=== PATIENT | female | born 1960 | race Caucasian/White ===

== ENCOUNTER 2022-07-10 10:24 | Inpatient (IN) | payer BC ==
[~2022-07-10] VITALS: Ht 165.1 cm; Wt 55.8 kg
[2022-07-10 11:33] LABS: BASOPHILS % (AUTO) 0.4 % (0-1); EOSINOPHILS % (AUTO) 0.4 % (0-6); HEMATOCRIT 40.2 % (35.0-45.0); HEMOGLOBIN 13.3 g/dl (12.0-16.0); LYMPHOCYTES # (AUTO) 1.7 X10'3 (1.1-4.8); LYMPHOCYTES % (AUTO) 25.2 % (21-51); MEAN CORPUSCULAR HEMOGLOBIN 29.9 PG (27.0-31.0); MEAN CORPUSCULAR HGB CONC 33.1 g/dL (33.0-36.5); MEAN CORPUSCULAR VOLUME 90.4 FL (78-98); MEAN PLATELET VOLUME 7.5 FL (7.4-10.4); MONOCYTES # (AUTO) 0.3 X10'3 (0-0.9); MONOCYTES % (AUTO) 4.9 % (2-12); NEUTROPHILS # (AUTO) 4.7 X10'3 (1.8-7.7); NEUTROPHILS % (AUTO) 69.1 % (42-75); PLATELET COUNT 232 X10'3 (140-440); RED BLOOD COUNT 4.44 X10'6 (4.20-5.60); RED CELL DISTRIBUTION WIDTH 13.5 % (11.5-14.5); WHITE BLOOD COUNT 6.8 X10'3 (4.5-11.0)
[2022-07-10 11:52] LABS: ALANINE AMINOTRANSFERASE 18 U/L (12-78); ALBUMIN/GLOBULIN RATIO 1.1 (1.1-1.5); ALKALINE PHOSPHATASE 46 IU/L (46-116); ANION GAP 10 (8-16); ASPARTATE AMINO TRANSFERASE 16 U/L (10-37); BILIRUBIN,TOTAL 1.1 MG/DL (0.1-1.0); BLOOD UREA NITROGEN 13 MG/DL (7-18); BUN/CREATININE RATIO 15.5 (6.6-38.0); CALCIUM 9.5 MG/DL (8.5-10.1); CHLORIDE 105 MMOL/L (99-107); CREATININE 0.84 MG/DL (0.40-0.90); ETHANOL < 0.010 GM/DL (0.0-0.010); GLUCOSE 105 MG/DL (70-104); POTASSIUM 4.1 MMOL/L (3.5-5.1); SODIUM 139 MMOL/L (135-145); TOTAL CARBON DIOXIDE 23.9 MMOL/L (24-32); TOTAL PROTEIN 7.7 G/DL (6.4-8.2); eGFR 68 ML/MIN
[2022-07-10 13:58] LABS: CLARITY,URINE CLEAR (Clear); COLOR,URINE STRAW (Yellow); GLUCOSE, URINE NEGATIVE (Neg); KETONES,URINE NEGATIVE (Neg); LEUKOCYTE ESTERASE ,URINE NEGATIVE (Neg); NITRITES, URINE POSITIVE (Neg); OCCULT BLOOD,URINE NEGATIVE (Neg); PROTEIN,URINE NEGATIVE (Neg); UROBILINOGEN,URINE 0.2 E.U/dL (0.2-1.0)
[2022-07-10 13:59] LABS: UA COLLECTION TYPE CLN CATCH MIDSTREAM
[2022-07-10 14:06] LABS: BACTERIA,URINE 4+ /HPF (Neg); MUCUS STRANDS NONE SEEN /LPF (Neg); RBC,URINE NONE SEEN /HPF (0-2); SQUAMOUS EPITHELIAL CELL,UR FEW /LPF (FEW); WBC,URINE NONE SEEN /HPF (0-4)
[2022-07-10 14:15] LABS: URINE AMPHETAMINE SCREEN NEGATIVE (Neg); URINE BARBITUATE SCREEN NEGATIVE (Neg); URINE BENZODIAZEPINES SCREEN NEGATIVE (Neg); URINE CANNABINOID SCREEN NEGATIVE (Neg); URINE COCAINE SCREEN NEGATIVE (Neg); URINE METHADONE SCREEN NEGATIVE (Neg); URINE OPIATE SCREEN NEGATIVE (Neg); URINE PHENCYCLIDINE SCREEN NEGATIVE (Neg)
--- NOTE | 2022-07-10 18:43 | NUR ---
pt started crying after she has given her belonging away and was very upset the fact she is not getting the psychiatric help ,pt stated she will be stuck in this room for several days because she is covid positive ,notified the pt about the policies and procedure of the hospital , came in to car pick up driver the stuff got upset about the situation .Informed that Pt is on legal 5150 and can not leave the hospital ,if they leave then we have to call the police to bring her back . As per he is P officer and he will take the pt back home and keep an eye on her And bring her back once she is cleared with covid. SBAR to primary rn Vasyl GUERRIER,ROYAL Kelley,Gladys gomez.
--- NOTE | 2022-07-10 21:00 | NUR ---
This nurse agrees with Vasyl boland
--- NOTE | 2022-07-10 21:10 | NUR ---
in-patient bed provided
[2022-07-10] MEDS: LORazepam 1 MG tablet PO PRN (21:24)
--- NOTE | 2022-07-11 06:53 | NUR ---
pt sleeping in rgt lateral position at this time.no distress noted RR WNL.
[2022-07-11] MEDS ORDERED: PROG200C11 PO (08:11)
[2022-07-11] MEDS ORDERED: ESTR1TAB28 PO (08:11)
[2022-07-11] MEDS ORDERED: VILA20TA2 PO (08:11)
[2022-07-11] MEDS: LORazepam 1 MG tablet PO PRN ×2 (09:36→22:05)
[2022-07-11] MEDS: estradiol 1mg tablet PO SCH (09:42)
--- NOTE | 2022-07-11 12:00 | NUR ---
pt refused to take her morning med .stated she will take it tomm morning .
--- NOTE | 2022-07-11 15:55 | NUR ---
Pt has an active plan to harm herself, does not wish to discuss it with RN.
[2022-07-11] MEDS: progesterone, micronized 100mg capsule PO SCH (21:00)
[2022-07-12] MEDS: estradiol 1mg tablet PO SCH (08:00)
--- NOTE | 2022-07-12 10:00 | NUR ---
ASSUMED CARE OF PT. REPORT TAKEN FROM BRENNAN YIP.
--- NOTE | 2022-07-12 10:47 | NUR ---
Pt resting in room quietly with at bedside. pt has no needs at this time, will continue to moniter patient.
--- NOTE | 2022-07-12 11:41 | NUR ---
PT RESTING IN ROOM QUIETLY. PT HAS NO NEEDS AT THIS TIME. WILL CONTINUE TO MONITER.
--- NOTE | 2022-07-12 12:17 | NUR ---
SPOKE WITH DAUGHTER OF PT REGARDING STATUS, DAUGHTER UPSET WITH SITUATION. DAUGHTER VERBALLY AGGRESSIVE ON PHONE. PTS DAUGHTER INFOMRED THAT PT HAS SPOKE WITH PROVIDER [facility]. SPOKE WITH KING PAIGE ABOUT PERFORMING ANOTHER COVID SWAB. [facility] DECLINED.
--- NOTE | 2022-07-12 13:17 | NUR ---
PT APPEARS TO BE SLEEPING ON RIGHT SIDE IN ROOM. PT HAS NO NEEDS AT THIS TIME, WILL CONTINUE TO MONITER.
--- NOTE | 2022-07-12 14:14 | NUR ---
PT IN ROOM, APPEARS TO BE SLEEPING ON RIGHT SIDE. PT HAS NO NEEDS AT THIS TIME, WILL CONTINUE TO MONITER.
--- NOTE | 2022-07-12 15:08 | NUR ---
pt resting in room quietly. pt has no needs at this time, will continue to moniter patient.
--- NOTE | 2022-07-12 17:32 | NUR ---
PT AWAKE IN ROOM TALKING TO . PT HAS NO NEEDS AT THIS TIME.
--- NOTE | 2022-07-12 19:00 | NUR ---
I agree with A Raysa Miner assessment.
[2022-07-12] MEDS: LORazepam 1 MG tablet PO PRN (19:28)
[2022-07-12] MEDS: progesterone, micronized 100mg capsule PO SCH (20:11)
--- NOTE | 2022-07-12 22:00 | NUR ---
THERE WAS NO SIGN OF PT PHONE, OR LABORER BRUSH CLEARING IN HER ROOM. PT REPORTS THAT HER VISITOR TOOK HOME HER BELONGINGS. NOTHING WAS FOUND DURING MY ENVIORNMENT CHECK.
[2022-07-13] MEDS: LORazepam 1 MG tablet PO PRN ×2 (01:53→20:19)
--- NOTE | 2022-07-13 08:24 | NUR ---
TECH LEFT PT BREAKFAST ON BEDSIDE TABLE REQUESTED BY PT
[2022-07-13] MEDS: estradiol 1mg tablet PO SCH ×2 (09:36→09:38)
--- NOTE | 2022-07-13 10:40 | NUR ---
was in room with patient. Pt and advised on hospital policy that no visitors allowed with positive covid. Daughter called and was very loud, questioning and demanding would not listen to RN. Wants pt retested for covid, wants her to have a shower. Pt out in hallways and states she went to the bathroom. Educated she can not be walking in the hallways with covid positive. She can use a BSC. Pt started yelling that she is not peeing in her room. called and states that [facility] has a bed for pt but needs additonal info from [facility]. [facility] called and left message to call RN back.
--- NOTE | 2022-07-13 18:34 | NUR ---
PT IS AWAKE AND IN BED IN ER ROOM 14. PT IS EATING DINNER REQUESTED. PT APPEARS TO BE IN NO DISTRESS.
[2022-07-13] MEDS: progesterone, micronized 100mg capsule PO SCH (20:23)
--- NOTE | 2022-07-13 20:30 | NUR ---
I agree with Raysa August assessment.
--- NOTE | 2022-07-14 06:45 | NUR ---
PT SLEEPING IN LFT LATERAL POSITION,NO DISTRESS NOTED.
[2022-07-14] MEDS: estradiol 1mg tablet PO SCH (07:56)
--- NOTE | 2022-07-14 08:21 | NUR ---
PT SITTING QUIETLY IN BED AT THIS TIME ,NO DISTRESS NOTED,WILL CONT TO MONITOR.
--- NOTE | 2022-07-14 08:51 | NUR ---
LATE ENTRY: PT'S HERE TO VISIT. WAS INFORMED THAT PT IS COVID POSITIVE AND DO TO THIS FACT, SHE COULD NOT HAVE ANY VISITORS UNTIL SHE TESTS NEGATIVE. WAS IRRITATED, STATING THAT SHE HAS BEEN HERE SINCE SUNDAY AND HE HAS BEEN ALLOWED TO VISIT. WAS INFORMED THAT THIS IS THE HOSPITAL POLICY AND THAT I WAS SORRY FOR THE LACK OF CONSISTANCY, HOWEVER HE WOULD HAVE TO LEAVE. BOTH AND PT WERE ANGRY, PATIENT MAKING STATEMENTS TO HOW UNFAIR IT WAS FOR HIM TO LEAVE NOW. PT WAS INFORMED THAT SHE WAS COVID POSTIVE ON 07/10/22 AND THAT SHE SHOULD BE RETESTED IN 5 DAYS WHICH WOULD BE 07/15/22 AND THAT INFECTION CONTROL WOULD BE CALLED TO VERIFY FOR RETESTING. PT AND REMAINED UNHAPPY WITH THE SITUATION, THAT SHE HAS NOT BEEN PLACED FOR TREATMENT. IT WAS EXPLAINED THAT [facility] WAS LOOKING FOR PLACEMENT, HOWEVER IT IS A PROCESS; PT HAS TO BE ACCEPTED TO AN OUTSIDE FACILITY AND THAT SINCE SHE IS COVID POSITIVE, THAT COULD BE HOLDING UP THE PROCESS. [facility] WAS NOTIFIED OF THE SITUATION WITH THE ; WAS INFORMED THAT A SAFETY PLAN IT IN PROCESS WITH PT'S DAUGHTER, THAT THE 5150 WAS RENEWED AND PLACEMENT IS STILL BEING SOUGHT.
--- NOTE | 2022-07-14 09:04 | NUR ---
PT'S CAME TO DROP SOME THINGS OFF FOR PT. WAS FOUND IN PT'S ROOM VISITING. WAS NOTIFIED THAT HE WOULD HAVE TO LEAVE AND THAT HE WAS TOLD ABOUT THE VISITING POLICY FOR COVID POSITIVE PT'S YESTERDAY. WAS AGAIN NOT HAPPY WITH THE SITUATION; STATING "SHE'S BEEN HERE SINCE SUNDAY AND NOTHING IS BEING DONE". IT WAS EXPLAINED THAT PT WAS EVALUATED YESTERDAY BY [facility] AND THAT THE PT IS WORKING ON A SAFETY PLAN WITH HER DAUGHTER, THAT THE 5150 WAS UPHELD BY [facility] AND THAT THEY ARE CONTINUING TO LOOK FOR PLACEMENT, AND THAT INFECTION CONTROL WILL BE CALLED TO VERIFY THAT PT WOULD BE RETESTED TOMORROW. WAS INFORMED THAT IF PT IS RETESTED AND IS COVID NEGATIVE, SHE WOULD BE MOVED TO THE OVERFLOW AREA AND HE WOULD BE ALLOWED TO VISIT... FAR GETTING PT PLACEMENT, WAS INFORMED THAT [facility] CONTINUES TO LOOK FOR A FACILITY THAT HAS ROOM AND WILL ACCEPT PT WHILE BEING COVID POSITIVE, THAT [facility] HAS BEEN EXPLORING OPTIONS FOR A SAFETY PLAN BETWEEN PT'S DAUGHTER/PT (WHICH NON HAVE BEEN VIABLE PER DULCE, [facility]) AND THAT THE PT'S 5150 WAS RENEWED YESTERDAY. SPOKE WITH MARIETTA FROM INFECTION CONTROL AND ASKED HER ABOUT RETESTING THE PT FOR COVID TOMORROW. PER MARIETTA, DR LARIOS MOST LIKELY WILL NOT HAVE HER RETESTED BUT CONTINUE WITH THE 10 DAY QUARANTINE; IF PT IS RETESTED AND REMAINS POSITIVE THE QUARANTINE WILL BE EXTENDED ANOTHER 10 DAYS; WHICH MAY PROLONG PT PLACEMENT. MARIETTA STATED THAT SHE WOULD VERIFY IT WITH DR LARIOS AND CALL WITH RECOMMENDATION. PT'S BELONGINGS THAT BROUGHT WERE REMOVED FROM PT'S ROOM AND LOGGED. PT PRECEEDED TO MAKE STATEMENT OF "I CAME IN HER BECAUSE I WANTED TO KILL MYSELF AND I WISH IS HAD.... GET THE FUCK OUT OF MY ROOM". Addendum: 07/14/22 at 1031 by SUNNY PT'S BELONGINGS TAKEN TO OVERFLOW AND PLACED IN RM 27 INFRONT OF LOCKERS; A TOTAL OF 3 BAGS LABLES AND COMBINED IN A HOSPITAL BELONGINGS BAG. NO OTHER BELONGINGS FOUND IN OVERFLOW LOCKERS PER ER JUNIOR RODRIGUEZ. SECURITY WAS REQUESTED TO COME AT THEIR CONVIENCE TO SEARCH FOR PT'S CELL PHONE WHICH SHE HAS BEEN SEEN WITH AND IS HIDING FROM STAFF.
--- NOTE | 2022-07-14 11:02 | NUR ---
PT REQUESTING TO SPEAK WITH [facility], COUNSELORS WERE INFORMED AND PT NOTIFIED THAT THEY WERE BUSY WITH OTHER PTS AND WOUND BE TO SEE HER KEILY
--- NOTE | 2022-07-14 11:53 | NUR ---
SPOKE WITH MARIETTA IN INFECTION CONTROL... DR COLREY STATED THAT PT TO BE BINEX SWABB IN THE MORNING OF 07/16/22. SECURITY WAS CALLED TO RETREIVED ITEMS IN PT'S ROOM THAT SHE HAS BEEN HIDING. Addendum: 07/14/22 at 1402 by SUNNY REMAINDER OF PT'S BELONGINGS WERE RETRIEVED FROM PT BY SECURITY, LOGED AND PLACED IN A LABLED HOSPITAL BAG AND TAKEN TO OVERFLOW #27 WITH THE PREVIOUS 3 BAGS (4 BAGS TOTAL) AND ALL BAGS WERE PLACED IN LOCKER #22
--- NOTE | 2022-07-14 12:18 | NUR ---
PT'S WAS CALLED AND NOTIFIED THAT SHE WILL BE BINEX SWABBED FOR COVID ON 07/16/22; 5 DAYS AFTER HER POSITIVE TEST ON 07/10/22. WAS ANGRY AND WAS INSISTING THAT HIS WAS BROUGHT HERE TO GET HELP AND THAT "YOU ARE KEEPING HER PRISONER" AND WANTED TO HAVE HER 5150 RESINDED. MR. REIS WAS INFORMED THAT THE 5150 WAS WRITTEN BY [facility] AND ONLY THEY COULD RESIND THE 5150 AND AT THIS TIME AFTER SPEAKING WITH HIS AND BEING UNABLE TO PROVIDE AN APPRORIATE SAFETY PLAN BETWEEN THE PT AND HER DAUGHTER IT WAS FELT THAT THE PT WAS NOT A SAFE DISCHAGE AT THIS TIME. STATES THAT HE UNDERSTANDS THAT "COVID" IS HOLDING THINGS UP EVEN THOUGH PT IS NOT SYMPTOMATIC, BUT YET CONTINUED TO INSIST THAT HIS NEEDED TO HAVE THE 5150 RESINDED. I ATTEMPTED TO EXPLAIN TO MR REIS THAT DUE TO HER BEING COVID POSITIVE, AT THIS TIME ALL OUTSIDE FACILITIES ARE CURRENTLY FULL AND THAT THEY WILL NOT TAKE A COVID POSITIVE PT. THAT THERE ARE ACOUPLE OF FACILITIES THAT HAVE COVID WINGS, BUT THEY TOO ARE FULL. I OFFERED TO HAVE MR REIS SPEAK WITH THE [facility] CASE WORKERS HERE TODAY, HOWEVER, I WAS INFORMED BY DULCE AND MARI THAT THEY DID NOT HAVE PERMISSION FROM THE PT TO SPEAK WITH HIM AND REFERED HIM TO HERNANDEZ AT [facility] WHO HAD ALL THE INFORMATION REGARDING THE PT'S CASE. IT WAS AT THIS TIME THAT MR REIS STARTED MAKING THREATS OF TAKING PT OUT OF THE HOSPITAL ON HIS OWN AND SEEKING OUTSIDE HELP HIMSELF. MR REIS WAS INFORMED THAT HIS THREATS WILL BE FOLLOWED WITH REPERCUSSIONS.
--- NOTE | 2022-07-14 13:01 | NUR ---
[facility], [facility] REHAB PHYSICIAN CALLED MR REIS AND OBTAINED PT'S DAUGHTER'S NAME AND PHONE#: AGATA FINCH INFORMATION WAS PASSED ON TO HERNANDO GUERRA
--- NOTE | 2022-07-14 13:32 | NUR ---
PT REQUESTING A PHONE TO MAKE A CALL, PT PROVIDED PHONE AT BEDSIDE SAFETY LUNCH TRAY DELIVERED TO PT BEDSIDE.
[2022-07-14] MEDS ORDERED: LORazepam 1 MG tablet PO ONE (13:40)
--- NOTE | 2022-07-14 13:46 | NUR ---
PT REQUESTING SOMETHING FOR ANXIETY. ORDER FOR ATIVAN 1MG PO x1 OBTAINED FROM DR EAGLE AND ADMINISTERED. PT'S RN NOTIFIED
--- NOTE | 2022-07-14 14:03 | NUR ---
PT'S RN NOTIFIED OF INTERACTION WITH PT'S AND THAT PT REQUESTED SOMETHING FOR ANXIETY; ATIVAN 1MG WAS ORDERED AND GIVEN
--- NOTE | 2022-07-14 15:25 | NUR ---
pt daughter ,scmh eval standing outside the pt room at this time ,pt and her daughter are very emotional & tearfull at this time.
--- NOTE | 2022-07-14 16:00 | NUR ---
PT HAS GIVEN VERBAL PERMISSION FOR HER DAUGHTER; AAGTA MIRAMONTES, TO RECEIVED UPDATE ON PT'S COVID TESTING ON SUNDAY MORNING; 07/16/22 ALONG WITH ALL OTHER CARE PT RECEIVED DURING HER STAY. DAUGHTER COLLECTED PT'S PERSONAL ITEMS; YETI CUP AND USED PANTIES, TO TAKE TO PT'S . ALL OTHER ITEMS REMAIN IN OVERFLOW LOCKER #22 FOR HER TO TAKE WHEN PT HAS PLACEMENT WITH MH SERVICES DAUGHTER WAS ALSO PROVIDED THE PHONE# OF THE ER ALONG WITH THE DIRECT LINE TO [facility] TAD OFFICE PER MARI [facility] AND TOLD TO ASK FOR HERNANDEZ.
[2022-07-14] MEDS ORDERED: ibuprofen tablet 400 MG TABLET PO ONE (20:20)
[2022-07-14] MEDS: LORazepam 1 MG tablet PO PRN (20:24)
[2022-07-14] MEDS: progesterone, micronized 100mg capsule PO SCH (21:59)
--- NOTE | 2022-07-15 04:19 | NUR ---
PT SLEPT WELL THROUGHOUT THE NIGHT. COOPERATIVE AND PLEASENT. PT IS RESERVED WHEN ASKED ABOUT HOW SHE IS FEELING AND DID NOT RESPOND WHEN ASKED IF SHE WAS HAVING ACTIVE SUICIDAL THOUGHTS.
[2022-07-15] MEDS: estradiol 1mg tablet PO SCH (08:00)
--- NOTE | 2022-07-15 08:30 | NUR ---
PT SITTING ON BED LOOKING AT BREAKFAST TRAY. PT DECLINES AM MEDS AND REPORTS SHE NO LONGER WANTS TO TAKE VIIBRYD SHE FEELS IT MADE HER MORE ANXIOUS AND STATES SHE FEELS SHE NO LONGER NEEDS TO BE ON HORMONE ESTRODIOL. PT REPORTS WANTING TO SEE PSYCHIATRIST ABOUT STARTING DIFFERENT MED THAN MED VIIBRYD. ED MD DR. CHEUNG UPDATED OF PT REQUEST AND OF NOT TAKING CURRENT PRESCRIBED MEDICATIONS.
--- NOTE | 2022-07-15 09:00 | NUR ---
PATIENT'S IS HERE IN ER LOBBY WITH CUP OF COFFEE FOR PATIENT. WAS INFORMED THAT PATIENT WILL BE RETESTED FOR COVID ON SUNDAY (TOMORROW), SO SHE IS STILL IN ISOLATION AND UNABLE TO HAVE OUTSIDE VISITORS AT THIS TIME. COOPERATIVE AND DEPARTED FROM ER AFTER CONDITION REPORT WAS GIVEN.
--- NOTE | 2022-07-15 10:45 | NUR ---
Pt given phone per pt request.
--- NOTE | 2022-07-15 13:00 | NUR ---
PATIENT'S DAUGHTER, SANTIAGO, HERE FOR CONDITION REPORT. SANTIAGO LEFT CARD AND COLORING SHEETS FOR PATIENT.
--- NOTE | 2022-07-15 18:05 | NUR ---
Pt called and asked if he can bring in food for his s/o. I informed him about our hospital policy, that we are unable to bring outside food into the facility with mental health holds. He verbalized his understanding of the teachings. S/o stated "I was told this earlier in the day by the day shift charge, however I wanted to see if the policy would change on night depending on the staff."
--- NOTE | 2022-07-15 19:58 | NUR ---
PT IS AMBULATING TO THE RESTROOM UNDER STAFF SUPERVISION.
[2022-07-15] MEDS: progesterone, micronized 100mg capsule PO SCH (20:40)
[2022-07-15] MEDS: LORazepam 1 MG tablet PO PRN (20:41)
--- NOTE | 2022-07-16 06:44 | NUR ---
Patient sleeping supine in bed. Respirations are even and unlabored.
[2022-07-16] MEDS: estradiol 1mg tablet PO SCH (08:00)
[2022-07-16] MEDS ORDERED: ibuprofen tablet 400 MG TABLET PO ONE (08:40)
[2022-07-16] MEDS ORDERED: ibuprofen 200mg tablet PO ONE (08:45)
--- NOTE | 2022-07-16 08:59 | NUR ---
is at bedside talking with .
--- NOTE | 2022-07-16 09:05 | NUR ---
SCM here evaluatomg patient.
--- NOTE | 2022-07-16 14:44 | NUR ---
Patient is sitting up in bed taking notes on a notepad.
--- NOTE | 2022-07-16 15:12 | NUR ---
Patient up to the restroom.
--- NOTE | 2022-07-16 16:36 | NUR ---
Patient's visiting at bedside.
[2022-07-16] MEDS: LORazepam 1 MG tablet PO PRN (20:34)
[2022-07-16] MEDS: progesterone, micronized 100mg capsule PO SCH (20:42)
--- NOTE | 2022-07-17 02:55 | NUR ---
General assessment reviewed
--- NOTE | 2022-07-17 06:35 | NUR ---
Patient sleeping supine. No distress observed. Continue to monitor.
[2022-07-17] MEDS: estradiol 1mg tablet PO SCH ×2 (08:00→08:59)
--- NOTE | 2022-07-17 08:20 | NUR ---
Patient sitting up in bed awake and eating breakfast. Patient is pleasant and cooperative.
--- NOTE | 2022-07-17 10:12 | NUR ---
RN with and patient going through her belongings and making sure they are suitable for admission to [facility]. Patient has been calm and cooperative. Continue to monitor.
--- NOTE | 2022-07-17 12:18 | NUR ---
Patient is eating lunch. No distress observed. Continue to monitor.
--- NOTE | 2022-07-17 14:20 | NUR ---
Patient writing in her journal. No distress observed. Continue to monitor.
[2022-07-17 15:15] VITALS: BP 107/82
--- NOTE | 2022-07-17 15:15 | NUR ---
ADMIT NOTE: RN received pt. from ER [facility] on 5150 for DTS. 5150 states, "you are experiencing suicidal thoughts, a plan, are feeling hopeless/helpless and are unable to safety plan". Pt. cooperative with skin assessment and 1:1 interview. Pt states, "I've been Feeling really sad and super hopeless. Was supposed to go to my daughters and then fly to [place] to visit friends, but just feeling hopeless and my said I need to go to hospital. I Tried to see my counselor but she said she was super busy and couldnt see me. She encouraged me to come here. My told me to come and they admitted me. 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 I feel it was my identitiy." Pt. reports she was started on Vybrid for 2 weeks but that it wasnt working well. Pt. states, "It was terrible. Made me lose sight of any hope. I dont like the medication... I don't normally take medication, I just like to be natural and healthy". Pt. reports she has been off of it for 7 days. Pt. states, "I Want to talk to somebody about my self worth". Pt. reports she began having thoughts of wanting to end her life after spending a lot of time being home alone with herself. Pt. states, "When I was isolated I would get into my head, Feelings of worthlessness. Letting those thoughts manifest. I would let that become my thought process". Pt. reports she was considering overdosing on pills. Pt. states, "I didn't really have intention of doing anything, it's more that I wanted to go to sleep and not wake up." Pt. reports recently getting after losing her job due to needing health insurance after she thought she possibly had cancer and feels that that she probably wouldn't have gotten if she hadn't lost her job.
[2022-07-17] MEDS ORDERED: loperamide 2mg capsule PO PRN (15:30)
[2022-07-17] MEDS ORDERED: acetaminophen 325mg tablet PO PRN ×2 (15:30)
[2022-07-17] MEDS ORDERED: NICOTINE POLACRILEX 2 MG LOZENGE BC PRN (15:30)
[2022-07-17] MEDS ORDERED: magnesium hydroxide 30ml (MOM) UD suspension PO PRN (15:30)
[2022-07-17] MEDS ORDERED: mag hydrox/Alum hydrox/simeth 30ml oral suspension PO PRN (15:30)
[2022-07-17] MEDS ORDERED: LORA-269 PO (17:16)
[2022-07-17 20:00] VITALS: BP 116/75
[2022-07-17] MEDS: progesterone, micronized 100mg capsule PO SCH (20:07)
[2022-07-17] MEDS: LORazepam 1 MG tablet PO PRN (20:07)
--- NOTE | 2022-07-18 02:38 | NUR ---
Nursing Progress Note: Problem: Patient admitted from ER overflow on 5150 for DTS. 5150 states, "you are experiencing suicidal thoughts, a plan, are feeling hopeless/helpless and are unable to safety plan". Interventions: 1:1 assessment, medication administration/monitoring, maintained a safe and supportive environment, Q15 safety checks. Response: Pt seen walking in the halls at the start of the shift, she did not socialize with peers. During 1:1 patient states that her 7 days in the ER gave her alot of time to reflect and "be in my head." She denied current thoughts of suicide, reports her depression is now a 6/10 instead of 10/10, she is not feeling hopeless. She has spoken to her daughter that is very supportive and plans on moving down to [place] to be by her. She is able to identify the loss of her job and income, and a hasty marriage to get insurance due to a cancer scare, as the cause for her depression. She is making future plans of getting a job once she moves to [place]. Her affect was euthymic, hygiene/grooming good, eye contact good. Pt requested PRN Ativan for anxiety prior to bedtime. Plan: Pt requires assessment and monitoring due to recent depression and thoughts of suicide.
[2022-07-18 07:30] VITALS: BP 130/78
[2022-07-18] MEDS ORDERED: nicotine 21mg patch - 24 hr TD SCH (08:00)
[2022-07-18 08:48] LABS: CHOL/HDL RATIO 3.2 (0.00-4.99); CHOLESTEROL 240 MG/DL (0-200); HDL CHOLESTEROL 76 MG/DL (35-60); LDL CHOLESTEROL 136 MG/DL (50-100); TRIGLYCERIDES 103 MG/DL (20-135)
[2022-07-18 09:12] LABS: HEMOGLOBIN A1C 5.3 % (4.5-6.2)
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
--- NOTE | 2022-07-18 17:53 | NUR ---
Nursing Progress Note: Problem: Patient admitted from ER overflow on 5150 for DTS. 5150 states, "you are experiencing suicidal thoughts, a plan, are feeling hopeless/helpless and are unable to safety plan". Interventions: 1:1 assessment, medication administration/monitoring, maintained a safe and supportive environment, Q15 safety checks. Response: RN received pt. asleep in bed at start of shift. Pt. awoke and ate breakfast. 1:1 done at bedside, pt. reports she is feeling much better and denies all psych symptoms. Pt. took a shower. Pt. participated in group. Pt. is social with peers and staff but guarded. Pt.s visited her. Pt. reports she is hoping for discharge soon and to get back into therapy. Plan: Pt requires assessment and monitoring due to recent depression and thoughts of suicide.
[2022-07-18] MEDS ORDERED: ibuprofen tablet 400 MG TABLET PO PRN (19:55)
[2022-07-18 20:00] VITALS: BP 115/66
[2022-07-18] MEDS: LORazepam 1 MG tablet PO PRN (20:24)
[2022-07-18] MEDS: progesterone, micronized 100mg capsule PO SCH (21:00)
--- NOTE | 2022-07-19 02:44 | NUR ---
Nursing Progress Note: Problem: Patient admitted from ER overflow on 5150 for DTS. 5150 states, "you are experiencing suicidal thoughts, a plan, are feeling hopeless/helpless and are unable to safety plan". Interventions: 1:1 assessment, medication administration/monitoring, maintained a safe and supportive environment, Q15 safety checks. Response: Received Pt walking halls of the unit after dinner. Pt pleasant and cooperative with vitals and assessments. She was personable and wanted to talk about the difficulty of life changes and loss of identity with loss of her job. Pt future minded and spoke of her children and grandchildren as most meaningful. Denies SI and reports depression lessening. Pt able to smile and have full range of affect in conversation. Pt reading in bed before falling asleep. Pt received Ativan and Motrin prn at HS with good effect. Plan: Pt requires assessment and monitoring due to recent depression and thoughts of suicide.
[2022-07-19 07:30] VITALS: BP 104/65
[2022-07-19] MEDS: ibuprofen 200mg tablet PO PRN ×2 (09:22→20:22)
[2022-07-19] MEDS ORDERED: citalopram 20mg tablet PO SCH (11:30)
--- NOTE | 2022-07-19 16:04 | NUR ---
DISCHARGE PLAN Lynda is going to discharge tomorrow. Her daughter, Nicole, is going to pick her up and to her back to her home in [place]. Scheduled follow up with [facility] via zoom. ESTEPHANIA Gonzales
--- NOTE | 2022-07-19 16:49 | NUR ---
Nursing Progress Note: Problem: Patient admitted from ER overflow on 5150 for DTS. 5150 states, "you are experiencing suicidal thoughts, a plan, are feeling hopeless/helpless and are unable to safety plan". Interventions: 1:1 assessment, medication administration/monitoring, maintained a safe and supportive environment, Q15 safety checks. Response: RN received pt. asleep in bed at start of shift Pt. awoke for breakfast. 1:1 done at bedside, pt. denies all psych symptoms, reports she is feeling better and hoping to be discharged today. Pt. reports she will go live with her daughter in [place] after she is discharged and feels good about it. Pt. attended groups and was social with peers and staff. Pt. observed pacing the unit frequently. Pt. met with health care social worker to talk about f/u care when she is discharged. Plan: Pt requires assessment and monitoring due to recent depression and thoughts of suicide.
[2022-07-19] MEDS: progesterone, micronized 100mg capsule PO SCH (20:22)
[2022-07-19] MEDS: LORazepam 1 MG tablet PO PRN (20:22)
[2022-07-19 23:52] VITALS: BP 116/80
--- NOTE | 2022-07-20 04:22 | NUR ---
Nursing Progress Note: Problem: Patient admitted from ER overflow on 5150 for DTS. 5150 states, "you are experiencing suicidal thoughts, a plan, are feeling hopeless/helpless and are unable to safety plan". Interventions: 1:1 assessment, medication administration/monitoring, maintained a safe and supportive environment, Q15 safety checks. Response: Received patient walking hallways and socializing with peers and staff. Patient reports having a headache and prn ibuprofen, and ativan were given prior to patient going to bed. Patient is happy about planned discharge to her daughter's house this morning. Patient denies SI. Patient is medication compliant. Plan: Pt requires assessment and monitoring due to recent depression and thoughts of suicide.
[2022-07-20 08:00] VITALS: BP 101/67
[2022-07-20] MEDS ORDERED: citalopram 20mg tablet PO SCH (08:00)
[2022-07-20] MEDS ORDERED: CITA-124 PO (09:35)
--- NOTE | 2022-07-20 11:04 | NUR ---
Discharge note: Pt. signed all paperwork and copies placed in chart, She received all personal belongings, inventory sheet signed. Reviewed DC paperwork with pt, and her f/u appt is with [facility] will call you sometime between 12-3 PM to do your intake, and Psychiatrist: Appointment:07/26/22 at 11 AM with Ruby Fischer NP [facility]. She ambulated off the unit without issue at 1055.
== END 2022-07-20 10:55 | disposition home or self-care (01) | DRG 882 ==
LOC: ER 10:25 → ED HOLD 07-17 14:10 → ADULT MH 07-17 15:21
PROVIDERS: ADMIT Psychiatry & Neurology Psychiatry; ATTEND Psychiatry & Neurology Psychiatry
DX: F43.23 Adjustment disorder with mixed anxiety and depressed mood (principal); F32.1 Major depressive disorder, single episode, moderate; R45.851 Suicidal ideations; Z20.822 Contact with and (suspected) exposure to COVID-19; Z56.0 Unemployment, unspecified; Z79.899 Other long term (current) drug therapy; Z90.710 Acquired absence of both cervix and uterus; Z91.410 Personal history of adult physical and sexual abuse; Z88.2 Allergy status to sulfonamides; Z88.5 Allergy status to narcotic agent
CPT/HCPCS: 36415; 80053; 80061; 80305; 80320; 81001; 83036; 84443; 85025; 87081; 87635; 87811; 99285; C9803